=== PATIENT | male | born 1965 | race Caucasian/White ===

== ENCOUNTER → 2016-06-10 | Outpatient (CLI) | payer OTHER ==
--- NOTE | 2016-06-12 09:23 | REP ---
MRI CERVICAL SPINE WITHOUT CONTRAST: 06/10/2016. Clinical history: Neck pain, right shoulder injury 3 months ago with radicular symptoms into the right upper extremity. No prior study. Technique: Sagittal T1, T2 and STIR images with axial T1 and T2 sequences provided. STIR image is degraded by some motion artifact. Sagittal images show loss of the normal cervical lordosis. There is loss of disc water signal at all cervical levels. There is cervical spondylosis greatest at C5-6 and C6-7, less at C4-5. The disc space heights are narrowed at those levels, only spared at the other levels. Vertebral body heights are intact. There are discogenic endplate changes only at the C5-6 level. Cervical cord shows no syrinx, atrophy or mass. Craniocervical junction was intact. There is no cerebellar tonsillar ectopia. At C2-3, there is no significant disc bulge herniation and no spinal or foraminal stenosis. At C3-4, mild broad-based disc bulge. There is some uncinate spurring. Foramina are mildly stenotic and the central canal shows adequate cross-sectional area without cord compression. At C4-5, there is broad-based disc bulge with right paracentral disc protrusion. This abuts and flattens the cord and obliterates the subarachnoid space with moderately severe spinal stenosis. There is foraminal encroachment bilaterally due to uncinate and facet spurs. At C5-6, broad-based disc bulge flattening the ventral thecal sac and ventral cord surface with moderately severe central canal stenosis. Likewise foramina are stenotic bilaterally due to uncinate and facet spurs. At C6-7, the broad-based disc bulge extending into the foramina noted. The cross-sectional area of the canal is diminished. The AP canal diameter less than 7 mm, moderately stenotic. The bilateral foraminal encroachment due to combined factors. At C7-T1, there is no disc bulge herniation and no spinal stenosis. Left foramen and mildly stenotic right foramen due to combined factors. Impression: 1. Cervical spondylosis with significant central canal stenosis from C4-5 through C6-7 and bilateral foraminal encroachment all of those levels. 2. There is mild broad-based disc bulge and some central canal stenosis at C3-4 with the foramina showing encroachment there and on the right at C7-T1. Signed by Stan Steward MD 06/12/2016 05:06 P
== END ==
LOC: M RAD 10:32
PROVIDERS: ATTEND Physician Assistant
DX: M50.320 Other cervical disc degeneration, mid-cervical region, unspecified level (principal); M48.02 Spinal stenosis, cervical region; M47.812 Spondylosis without myelopathy or radiculopathy, cervical region

== ENCOUNTER → 2016-12-07 | Outpatient (REF) | payer OTHER, SELFPAY ==
[2016-12-07 19:26] LABS: AMYLASE 63 U/L (25-115)
[2016-12-08 09:09] LABS: CONTROL LINE HPYORI INT CTR LINE PRESENT
== END ==
LOC: M LAB REF 16:44
PROVIDERS: ATTEND Nurse Practitioner Adult Health
DX: R10.9 Unspecified abdominal pain (principal)

== ENCOUNTER → 2022-12-05 | Outpatient (REF) | payer BC ==
[2022-12-05 18:11] LABS: BASO # 0.1 10^3/uL (0.0-0.2); BASO % 0.8 % (0.0-1.0); EOS # 0.3 10^3/uL (0.0-0.5); EOS % 2.7 % (0.0-3.0); HEMATOCRIT 39.7 % (42.0-52.0); HEMOGLOBIN 12.9 g/dl (13.5-17.5); LYMPH # 2.7 10^3/uL (1.5-5.0); LYMPH % 29.1 % (24.0-44.0); MEAN CORPUSCULAR HEMOGLOBIN 28.3 pg (27.0-33.0); MEAN CORPUSCULAR HGB CONC 32.5 g/dl (32.0-36.5); MEAN CORPUSCULAR VOLUME 87.1 fl (80.0-96.0); MONO # 0.7 10^3/uL (0.0-0.8); MONO % 7.5 % (2.0-8.0); NEUTROPHILS # 5.6 10^3/uL (1.5-8.5); NEUTROPHILS % 59.5 % (36.0-66.0); PLATELET COUNT, AUTOMATED 299 10^3/uL (150-450); RED BLOOD COUNT 4.56 10^6/uL (4.30-6.10); WHITE BLOOD COUNT 9.4 10^3/uL (4.0-10.0)
[2022-12-05 18:30] LABS: ALBUMIN 3.4 G/DL (3.2-5.2); ALKALINE PHOSPHATASE 131 U/L (46-116); ALT/SGPT 35 U/L (7.0-40); AST/SGOT 13 U/L (<34); BILIRUBIN,TOTAL 1.2 MG/DL (0.3-1.2); BLOOD UREA NITROGEN 19 MG/DL (9-23); CALCIUM LEVEL 9.3 MG/DL (8.5-10.1); CARBON DIOXIDE LEVEL 26 MMOL/L (20-31); CHLORIDE LEVEL 102 MMOL/L (98-107); CREATININE FOR GFR 0.96 MG/DL (0.70-1.30); GLOMERULAR FILTRATION RATE > 60.0 (>56); GLUCOSE, FASTING 189 MG/DL (60-100); POTASSIUM SERUM 4.4 MMOL/L (3.5-5.1); SODIUM LEVEL 140 MMOL/L (136-145)
== END ==
LOC: M LAB REF 16:34
PROVIDERS: ATTEND Family Medicine Addiction Medicine
DX: D64.9 Anemia, unspecified (principal); I25.10 Atherosclerotic heart disease of native coronary artery without angina pectoris

== ENCOUNTER → 2023-07-02 | Outpatient (REF) | payer BC ==
[2023-07-02 12:55] LABS: CREATININE, URINE 94.6 MG/DL; MAU/CREAT RATIO 40.1 MCG/MG (0.0-30.0)
[2023-07-02 13:34] LABS: THYROID STIMULATING HORMONE 3.415 uIU/ML (0.55-4.78)
[2023-07-02 13:35] LABS: ALKALINE PHOSPHATASE 93 U/L (46-116); ALT/SGPT 30 U/L (7.0-40); AST/SGOT 18 U/L (<34); BLOOD UREA NITROGEN 17 MG/DL (9-23); CALCIUM LEVEL 9.4 MG/DL (8.5-10.1); CARBON DIOXIDE LEVEL 27 MMOL/L (20-31); CHLORIDE LEVEL 105 MMOL/L (98-107); CHOLESTEROL LEVEL 143 MG/DL (<200); CHOLESTEROL RISK RATIO 2.81 (<5); GLOMERULAR FILTRATION RATE > 60.0 (>56); GLUCOSE, FASTING 121 MG/DL (60-100); HDL CHOLESTEROL 50.8 MG/DL (>40); LDL CHOLESTEROL 70.6 MG/DL (<100); NON-HDL-C 92.2 MG/DL; POTASSIUM SERUM 4.7 MMOL/L (3.5-5.1); SODIUM LEVEL 139 MMOL/L (136-145); TOTAL PROTEIN 7.2 G/DL (5.7-8.2); TRIGLYCERIDES LEVEL 108 MG/DL (<150)
== END ==
LOC: M LAB REF 12:07
PROVIDERS: ATTEND Family Medicine Addiction Medicine
DX: E11.9 Type 2 diabetes mellitus without complications (principal)

== ENCOUNTER → 2023-07-24 | Outpatient (CLI) | payer BC ==
[~2023-07-24] MED LIST: AMIO200T49 PO; ASPI81TA26 PO; ATOR80TA59 PO; BRIL90TA PO; ENTR1TAB7 PO; JARD1TAB PO; METF500T13 PO; METO1TAB32 PO; SPIR-10 PO
== END ==
LOC: M SLEEP 20:00
PROVIDERS: ATTEND Physician Assistant
DX: G47.33 Obstructive sleep apnea (adult) (pediatric) (principal)

== ENCOUNTER 2023-08-15 06:37 | Day surgery (SDC) | payer BC ==
[~2023-08-15] VITALS: Ht 182.9 cm; Wt 96.4 kg
[2023-08-15] MEDS: NS 1,000 ML IV ONE (07:17)
[2023-08-15] MEDS ORDERED: propofoL 200 MG/20 ML VIAL As Ordered ONE (07:38)
[2023-08-15 08:03] VITALS: TEMP 96.5
[2023-08-15 08:23] VITALS: BP 109/57; O2SAT 97
== END 2023-08-15 08:35 | disposition home or self-care (01) ==
LOC: M OPP 06:37
PROVIDERS: ATTEND Surgery
DX: Z12.11 Encounter for screening for malignant neoplasm of colon (principal); Z12.12 Encounter for screening for malignant neoplasm of rectum; D12.5 Benign neoplasm of sigmoid colon; D12.3 Benign neoplasm of transverse colon; D12.7 Benign neoplasm of rectosigmoid junction; I25.10 Atherosclerotic heart disease of native coronary artery without angina pectoris; E11.9 Type 2 diabetes mellitus without complications; I25.2 Old myocardial infarction; Z95.810 Presence of automatic (implantable) cardiac defibrillator; I50.9 Heart failure, unspecified; Z79.899 Other long term (current) drug therapy; Z79.82 Long term (current) use of aspirin; Z79.84 Long term (current) use of oral hypoglycemic drugs; Z79.02 Long term (current) use of antithrombotics/antiplatelets; Z95.5 Presence of coronary angioplasty implant and graft

== ENCOUNTER → 2023-08-22 | Outpatient (REF) | payer BC ==
[2023-08-22 16:31] LABS: CHOLESTEROL RISK RATIO 3.09 (<5); HDL CHOLESTEROL 44.9 MG/DL (>40); LDL CHOLESTEROL 63.7 MG/DL (<100); NON-HDL-C 94.1 MG/DL
[2023-08-22 17:15] LABS: HEMOGLOBIN A1c 6.6 % (4.0-6.0)
== END ==
LOC: M LAB REF 12:28
PROVIDERS: ATTEND Family Medicine Addiction Medicine
DX: E11.9 Type 2 diabetes mellitus without complications (principal)

== ENCOUNTER → 2024-01-07 | Outpatient (CLI) | payer BC ==
[2024-01-07 14:07] LABS: ALBUMIN 3.4 G/DL (3.2-5.2); BLOOD UREA NITROGEN 20 MG/DL (9-23); CALCIUM LEVEL 9.1 MG/DL (8.5-10.1); CARBON DIOXIDE LEVEL 26 MMOL/L (20-31); CHLORIDE LEVEL 106 MMOL/L (98-107); CREATININE FOR GFR 1.09 MG/DL (0.70-1.30); GLOMERULAR FILTRATION RATE > 60.0 (>56); GLUCOSE, FASTING 106 MG/DL (60-100); PHOSPHORUS LEVEL 3.6 MG/DL (2.5-4.9); POTASSIUM SERUM 4.4 MMOL/L (3.5-5.1); SODIUM LEVEL 139 MMOL/L (136-145)
== END ==
LOC: M LAB 12:36
PROVIDERS: ATTEND Internal Medicine Cardiovascular Disease
DX: I50.22 Chronic systolic (congestive) heart failure (principal)